=== PATIENT | female | born 1970 | race Caucasian/White ===

== ENCOUNTER 2020-08-13 13:03 | Inpatient (IN) ==
[2020-08-13] MEDS ORDERED: 0.9 % SODIUM CHLORIDE 1,000 ML IV ONE (13:36)
--- NOTE | 2020-08-13 13:39 | Emergency Department Note ---
Arrhythmia/Palpitations HPI General Chief Complaint: Arrhythmia/Palpitations Stated Complaint: palpations and light headed Time Seen by Provider: 08/13/20 13:25 Source: patient Mode of arrival: ambulatory Limitations: no limitations History of Present Illness HPI Narrative: Narrative: 49-year-old female comes in again 3 days after being seen for hypertensive urgency. Her Covid test and PCR were negative as of tod ay. She is complaining of cough and some mild congestion and paranasal sinus headache. She took her hydralazine right before coming in so her blood pressure is trending down-it was as high as 220 systolic prior to this. She is also on metoprolol twice a day. She is having some chest pressure but no true chest pain. No trouble urinating. 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 release 24 hr multivitamin with minerals 1 tab PO QDAY 08/10/20 08/10/20 Previous Rx's Medication Instructions Recorded hydralazine 10 mg PO TIDP PRN #20 tab 08/10/20 Allergies Allergy/AdvReac Type Severity Reaction Status Date / Time Penicillins Allergy Mild Rash Verified 08/10/20 09:46 Amoxicillin AdvReac Mild Nausea Verified 08/10/20 09:46 Review of Systems ROS ROS Narrative: Narrative: All systems ED: reviewed and negative except as stated. [facility] Narrative Patient History Narrative: Narrative: Medical/Surgical/Family History All Active Problems (Updated 08/13/20 @ 13:51 by Anton Garcia MD) Palpitations (Acute) Sinusitis (Acute) Asymptomatic hypertensive urgency (Acute) Essential hypertension (Acute) Migraine (Acute) Headache (Acute) History of hypertension (Acute) History of benign brain tumor (Acute) Medical History (Updated 08/13/20 @ 13:51 by Anton Garcia MD) Status post gamma knife treatment (Acute) Surgical History (Updated 08/13/20 @ 13:46 by Anton Garcia MD) History of craniotomy (Acute) Social History Smoking Status: Never smoker Exam Narrative Narrative: Narrative: No acute distress resting comfortably. Normocephalic a traumatic. Conjunctive are clear sclerae white nonicteric. Mild proptosis on the right side. No nasal discharge but she does have some audible congestion. Oropharynx is pink and moist. Tongue is midline. I do not see any lesions perioral. She does have a baseline facial droop to the left. Mild chronic dysarthria. Heart is regular rate and rhythm no murmur appreciated. Lungs are clear to auscultation bilaterally without wheezes rales rhonchi or respiratory distress. Abdomen is soft nontender nondistended. No peritoneal signs or guarding. No pedal edema. +2 radial pulse. Alert and oriented General Limitations: no limitations Course Vital Signs Vital signs: Vital Signs Temperature 98.1 F 08/13/20 13:03 Pulse Rate 92 H 08/13/20 13:03 Respiratory Rate 18 08/13/20 13:03 Blood Pressure 211/115 08/13/20 13:03 Pulse Oximetry (%) 100 08/13/20 13:03 Temperature 98.1 F 08/13/20 13:03 Pulse Rate 88 08/13/20 17:17 Respiratory Rate 15 08/13/20 17:17 Blood Pressure 175/109 08/13/20 17:17 Pulse Oximetry (%) 96 08/13/20 17:17 MDM MDM Narrative Medical decision making narrative: Narrative: Hypertension plus congestion, which she thinks is from a sinus infection. Also noted is some chest pressure. EKG shows sinus rhythm but she does have some borderline ST depression in the lateral leads and inferior leads. I do not have a prior to compare with. We will check some labs and a chest x-ray. As she just took her hydralazine we will wait to see how that brings her blood pressure down before prescribing anything else Hydralazine brought her blood pressure into the 190s systolic but then it went back up to 213/100. We will give her a dose of labetalol Labetalol got her blood pressure into the 170s but this is still markedly elevat ed compared to her normal. We will give her 1 more dose Rhythm strip shows ST depression and this is concerning so we will repeat the EKG. troponin is normal as is D-dimer After getting up to go the bathroom blood pressure was down in the 200s. We will start a nicardipine drip. I discussed the case with both the patient and Dr. Powell, our hospitalist. He agreed to accept the patient for further care and evaluation in the hospital Lab Data Result diagrams: 08/13/20 13:37 08/13/20 13:37 Labs: Lab Results 08/13/20 08/13/20 08/13/20 Range/Units 13:37 13:37 13:37 WBC 8.4 (4.5-11.0) K/mcL RBC 4.89 (4.00-5.20) M/mcL Hgb 14.3 (12.0-15.0) g/dL Hct 41.6 (36.0-48.0) % MCV 85.1 (80.0-100.0) fL MCH 29.2 (26.0-34.0) pg MCHC 34.4 (31.0-36.0) g/dL RDW 11.9 (11.5-14.5) % Plt Count 366 (140-440) K/mcL MPV 10.1 (7.4-10.4) fL Neut % (Auto) 63.4 (38.0-78.0) % Lymph % (Auto) 29.6 (15.0-49.0) % [place] % (Auto) 5.1 (1.0-12.0) % Eos % (Auto) 1.7 (0.0-7.0) % Baso % (Auto) 0.2 (0.0-2.0) % Lymph # (Auto) 2.50 (1.50-4.80) K/mcL [place] # (Auto) 0.43 (0.10-0.90) K/mcL Eos # (Auto) 0.14 (0.00-0.70) K/mcL Baso # (Auto) 0.02 (0.00-0.20) K/mcL Absolute Neutrophils 5.35 (1.80-8.00) K/mcL D-Dimer < 0.27 L (0.27-0.5) ug/mL Sodium 139 (133-145) mmol/L Potassium 3.7 (3.3-5.1) mmol/L Chloride 102 (96-108) mmol/L Carbon Dioxide 27 (22-30) mmol/L Anion Gap 10.0 (8.0-16.0) BUN 11 (6-20) mg/dL Creatinine 0.9 (0.6-1.1) mg/dL GFR Calculation 74 Glucose 119 H (70-105) mg/dL Calcium 9.9 (8.6-10.4) mg/dL Magnesium 2.2 (1.6-2.5) mg/dL Total Bilirubin 0.3 (0.1-1.0) mg/dL AST 24 (<32) U/L ALT 23 (<40) U/L Alkaline Phosphatase 69 (39-117) U/L Troponin T (<0.03) ng/mL Total Protein 7.9 (5.9-8.4) gm/dL Albumin 4.5 (3.2-5.2) gm/dL Globulin 3.4 (2.2-3.7) gm/dL Albumin/Globulin Ratio 1.3 (1.0-2.3) TSH 1.58 (0.27-5.01) uIU/mL Urine Color Urine Appearance (Clear) Urine pH (5.0-9.0) Ur Specific [place] (1.000-1.035) Urine Protein (Negative) mg/dL Urine Glucose (UA) (Negative) mg/dL Urine Ketones (Negative) mg/dL Urine Occult Blood (Negative) mg/dL Urine Nitrate (Negative) Urine Bilirubin (Negative) mg/dL Urine Urobilinogen mg/dL Ur Leukocyte Esterase (Negative) /ug Ur Culture Indicated? 08/13/20 08/13/20 Range/Units 13:37 15:30 WBC (4.5-11.0) K/mcL RBC (4.00-5.20) M/mcL Hgb (12.0-15.0) g/dL Hct (36.0-48.0) % MCV (80.0-100.0) fL MCH (26.0-34.0) pg MCHC (31.0-36.0) g/dL RDW (11.5-14.5) % Plt Count (140-440) K/mcL MPV (7.4-10.4) fL Neut % (Auto) (38.0-78.0) % Lymph % (Auto) (15.0-49.0) % [place] % (Auto) (1.0-12.0) % Eos % (Auto) (0.0-7.0) % Baso % (Auto) (0.0-2.0) % Lymph # (Auto) (1.50-4.80) K/mcL [place] # (Auto) (0.10-0.90) K/mcL Eos # (Auto) (0.00-0.70) K/mcL Baso # (Auto) (0.00-0.20) K/mcL Absolute Neutrophils (1.80-8.00) K/mcL D-Dimer (0.27-0.5) ug/mL Sodium (133-145) mmol/L Potassium (3.3-5.1) mmol/L Chloride (96-108) mmol/L Carbon Dioxide (22-30) mmol/L Anion Gap (8.0-16.0) BUN (6-20) mg/dL Creatinine (0.6-1.1) mg/dL GFR Calculation Glucose (70-105) mg/dL Calcium (8.6-10.4) mg/dL Magnesium (1.6-2.5) mg/dL Total Bilirubin (0.1-1.0) mg/dL AST (<32) U/L ALT (<40) U/L Alkaline Phosphatase (39-117) U/L Troponin T < 0.01 (<0.03) ng/mL Total Protein (5.9-8.4) gm/dL Albumin (3.2-5.2) gm/dL Globulin (2.2-3.7) gm/dL Albumin/Globulin Ratio (1.0-2.3) TSH (0.27-5.01) uIU/mL Urine Color Colorless Urine Appearance Clear (Clear) Urine pH 7.0 (5.0-9.0) Ur Specific [place] 1.006 (1.000-1.035) Urine Protein Negative (Negative) mg/dL Urine Glucose (UA) Negative (Negative) mg/dL Urine Ketones Negative (Negative) mg/dL Urine Occult Blood Negative (Negative) mg/dL Urine Nitrate Negative (Negative) Urine Bilirubin Negative (Negative) mg/dL Urine Urobilinogen Negative mg/dL Ur Leukocyte Esterase Negative (Negative) /ug Ur Culture Indicated? No EKG Data EKG #1: EKG attestation: Yes I reviewed and interpreted this EKG. EKG results narrative: Borderline ST depression in the lateral and inferior leads. Sinus rhythm Discharge Plan Patient/Caregiver Discharge Instructions Pt seen by [employer]W OPERATOR/PA only: No Clinical Impression: Asymptomatic hypertensive urgency, Palpitations Sinusitis Qualifiers: Sinusitis location: frontal Chronicity: acute Recurrence: not specified as recurrent Qualified Code(s): J01.10 - Acute frontal sinusitis, unspecified Patient Disposition: Home, Self-Care Condition: Fair Follow up with: Les De La O DO [Primary Care Provider] - Prescriptions: No Action multivitamin with minerals [Hair,Skin and Nails] Tablet 1 tab PO QDAY RF: 0 amberen PO QDAY RF: 0 metoprolol succinate 50 mg capsule,sprinkle,ER 24hr 50 mg PO BID RF: 0 losartan 100 mg tablet 100 mg PO QDAY RF: 0 ferrous sulfate 325 mg (65 mg iron) tablet,delayed release (DR/EC) 325 mg PO BID RF: 0 hydralazine 10 mg tablet 10 mg PO TIDP PRN (Reason: hypertension) Qty: 20 RF: 0
--- NOTE | 2020-08-13 13:57 | XRay Report ---
CLINICAL INFORMATION: Cough COMPARISON: None. TECHNIQUE: Portable FINDINGS: The heart size, mediastinum and pulmonary vessels are unremarkable. The lungs are clear. There are no effusions. The bones and soft tissues are within normal limits. IMPRESSION: Normal chest. Interpreted and Authenticated by: Dung Wei 08/13/20
[2020-08-13 14:25] LABS: Basophils # (Auto) 0.02 K/mcL (0.00-0.20); Basophils % (Auto) 0.2 % (0.0-2.0); Eosinophils # (Auto) 0.14 K/mcL (0.00-0.70); Eosinophils % (Auto) 1.7 % (0.0-7.0); Hematocrit 41.6 % (36.0-48.0); Hemoglobin 14.3 g/dL (12.0-15.0); Lymphocytes % (Auto) 29.6 % (15.0-49.0); Mean Cell Volume 85.1 fL (80.0-100.0); Mean Corpuscular HGB Conc 34.4 g/dL (31.0-36.0); Mean Platelet Volume 10.1 fL (7.4-10.4); Monocytes # (Auto) 0.43 K/mcL (0.10-0.90); Monocytes % (Auto) 5.1 % (1.0-12.0); Neutrophils % (Auto) 63.4 % (38.0-78.0); Platelet Count 366 K/mcL (140-440); RBC 4.89 M/mcL (4.00-5.20); Red Cell Distribution Width 11.9 % (11.5-14.5); WBC 8.4 K/mcL (4.5-11.0)
[2020-08-13] MEDS ORDERED: LABETALOL 5 MG/ML ML IV ONE ×2 (14:35→15:47)
[2020-08-13 14:52] LABS: ALT/SGPT 23 U/L (<40); AST/SGOT 24 U/L (<32); Albumin 4.5 gm/dL (3.2-5.2); Albumin/Globulin Ratio 1.3 (1.0-2.3); Alkaline Phosphatase 69 U/L (39-117); Bilirubin,Total 0.3 mg/dL (0.1-1.0); Blood Urea Nitrogen 11 mg/dL (6-20); Calcium 9.9 mg/dL (8.6-10.4); Carbon Dioxide 27 mmol/L (22-30); Chloride 102 mmol/L (96-108); Globulin 3.4 gm/dL (2.2-3.7); Glomerular Filtration Rate 74; Glucose 119 mg/dL (70-105); Thyroid Stimulating Hormone 1.58 uIU/mL (0.27-5.01)
[2020-08-13 16:33] LABS: Appearance,Urine CLEAR (Clear); Bilirubin,Urine Negative (Negative); Color,Urine COLORLESS; Culture Indicated,Urine No; Glucose,Urine (UA) Negative (Negative); Ketones,Urine Negative (Negative); Leukocyte Esterase,Urine Negative /ug (Negative); Nitrate,Urine Negative (Negative); Protein,Urine Negative (Negative); Specific Gravity,Urine 1.006 (1.000-1.035); Urine Blood Negative (Negative); Urobilinogen,Urine Negative
[2020-08-13] MEDS ORDERED: ACETAMINOPHEN 325 MG TABLET PO ONE (17:20)
--- NOTE | 2020-08-13 17:33 | Internal Med History&Physical ---
HPI History of Present Illness Patient information: Note initiated : 08/13/20 at 5:31 pm Service Date, if different from initiated Date: [] Patient: Brigitte Johnson a 49 y/o F admitted on for palpations and light headed. Chief Complaint: As above History of present illness: Ms. Johnson is a 49 year old F with a history of acoustic neuroma and resultant left facial palsy/left-sided hearing loss/hypertension/migraine who presents to the ER with worsening blood pressures and associated chest palpitation/lightheadedness weakness and shortness of breath that has progressed over the last few days. Patient has had longstanding hypertension and was f airly well controlled with blood pressures around 140s until recently. She was recently evaluated urgent care for rule out Covid. She was found to be hypertensive's on August 10 and was referred to the ER. Patient was discharged on oral hydralazine and advised to follow-up with primary care physician. However over the next 48 hours she developed increasing sinus symptoms/headache and blood pressure was elevated around 200. She took her hydralazine without any effect. She now presents to the ER. Initial work-up was consistent with blood pressures over 220. Negative troponins. X-ray unremarkable. Patient was started on labetalol without improvement. Subsequently nicardipine drip. Hospital service was consulted for admission. At the time of my evaluation patient is alert and oriented. She denies active distress. She was able to endorse history as above. She endorses to chest pressure symptoms. She denies diarrhea, dysuria, fever, chills, high salt intake or recent NSAID use. She denies missing her usual antihypertensives. She denies visual blurring but endorses to worsening headache/lightheadedness. She denies thunderclap headache or unilateral weakness Review of systems 10 point review system was performed and is negative except for ones discussed above PFSH PFSH All Active Problems (Updated 08/14/20 @ 10:09 by Mariana Pugh MD) Resistant hypertension (Chronic) Palpitations (Acute) Sinusitis (Acute) Asymptomatic hypertensive urgency (Acute) Essential hypertension (Acute) Migraine (Acute) Headache (Acute) History of hypertension (Acute) History of benign brain tumor (Acute) Medical History (Updated 08/14/20 @ 10:09 by Mariana Pugh MD) Status post gamma knife treatment (Acute) Surgical History (Updated 08/13/20 @ 13:46 by Anton Garcia MD) History of craniotomy (Acute) Social History smoking status: Never smoker MEDS/ALLERGIES Home Medications and Allergies Home Medications Medication Instructions Recorded Confirmed Type amberen 1 tab PO QDAY 08/10/20 08/13/20 History ferrous sulfate 325 mg (65 mg 325 mg PO BID 08/10/20 08/13/20 History iron) tablet,delayed release hydralazine 10 mg PO TIDP PRN #20 tab 08/10/20 08/13/20 Rx losartan 100 mg tablet 100 mg PO QHS 08/10/20 08/13/20 History metoprolol succinate 50 mg capsule 50 mg PO BID each 08/10/20 08/13/20 History sprinkle, ext. release 24 hr multivitamin with minerals 1 tab PO QDAY 08/10/20 08/13/20 History ibuprofen 800 mg PO PRN PRN 08/13/20 08/13/20 History Allergies Allergy/AdvReac Type Severity Reaction Status Date / Time Penicillins Allergy Mild Rash Verified 08/10/20 09:46 Amoxicillin AdvReac Mild Nausea Verified 08/10/20 09:46 EXAM Constitutional Vitals: Temp Pulse Resp BP Pulse Ox 98.1 F 88 15 175/109 96 08/13/20 13:03 08/13/20 17:17 08/13/20 17:17 08/13/20 17:17 08/13/20 17:17 Left-sided facial droop Head normocephalic Oral cavity moist Left hearing loss/no ear nose discharge Eye movement symmetrical Neck supple no lymphadenopathy S1-S2 regular Nonlabored breathing Nondistended nontender abdomen Lower extremity no cyanosis clubbing or joint swelling Skin no suspicious lesion Psych anxious but alert cooperative Neuro normal higher function DATA Data Completed and Pending Labs: Labs from last 24 hours 08/13/20 08/13/20 08/13/20 15:30 13:37 13:37 WBC RBC Hgb Hct MCV MCH MCHC RDW Plt Count MPV Neut % (Auto) Lymph % (Auto) [place] % (Auto) Eos % (Auto) Baso % (Auto) Lymph # (Auto) [place] # (Auto) Eos # (Auto) Baso # (Auto) Absolute Neutrophils D-Dimer Sodium 139 Potassium 3.7 Chloride 102 Carbon Dioxide 27 Anion Gap 10.0 BUN 11 Creatinine 0.9 GFR Calculation 74 Glucose 119 H Calcium 9.9 Magnesium 2.2 Total Bilirubin 0.3 AST 24 ALT 23 Alkaline Phosphatase 69 Troponin T < 0.01 Total Protein 7.9 Albumin 4.5 Globulin 3.4 Albumin/Globulin Ratio 1.3 TSH 1.58 Urine Color Colorless Urine Appearance Clear Urine pH 7.0 Ur Specific [place] 1.006 Urine Protein Negative Urine Glucose (UA) Negative Urine Ketones Negative Urine Occult Blood Negative Urine Nitrate Negative Urine Bilirubin Negative Urine Urobilinogen Negative Ur Leukocyte Esterase Negative Ur Culture Indicated? No 08/13/20 08/13/20 13:37 13:37 WBC 8.4 RBC 4.89 Hgb 14.3 Hct 41.6 MCV 85.1 MCH 29.2 MCHC 34.4 RDW 11.9 Plt Count 366 MPV 10.1 Neut % (Auto) 63.4 Lymph % (Auto) 29.6 [place] % (Auto) 5.1 Eos % (Auto) 1.7 Baso % (Auto) 0.2 Lymph # (Auto) 2.50 [place] # (Auto) 0.43 Eos # (Auto) 0.14 Baso # (Auto) 0.02 Absolute Neutrophils 5.35 D-Dimer < 0.27 L Sodium Potassium Chloride Carbon Dioxide Anion Gap BUN Creatinine GFR Calculation Glucose Calcium Magnesium Total Bilirubin AST ALT Alkaline Phosphatase Troponin T Total Protein Albumin Globulin Albumin/Globulin Ratio TSH Urine Color Urine Appearance Urine pH Ur Specific [place] Urine Protein Urine Glucose (UA) Urine Ketones Urine Occult Blood Urine Nitrate Urine Bilirubin Urine Urobilinogen Ur Leukocyte Esterase Ur Culture Indicated? A/P Narrative A/P Narrative: * Hypertensive crisis with chest pressure/headache-start nicardipine drips, resume home medication/add calcium channel allison. Nephrology consult for optimizing of hypertension. * History of migraine-continue as needed antimigraine medications. * Full code * Prophylaxis heparin Plan * Inpatient PCU admission * Nicardipine drip and titrate to effect * Restart antihypertensives * Nutrition support/therapies * Nephrology consult * Renal artery ultrasound/urine studies/echocardiogram Critical care time over 35 minutes on management of hypertensive crisis Time Spent With Patient Time: Total time spent is greater than 50% in coordination of care (as documented) at patient's floor/unit and/or counseling patient:
[2020-08-13] MEDS ORDERED: niCARdipine 25 MG in 0.9 % SODIUM CHLORIDE 240 ML IV SCH (17:45)
[2020-08-13] MEDS ORDERED: BISACODYL 10 MG SUPP.RECT PR PRN (18:44)
[2020-08-13] MEDS ORDERED: POTASSIUM CHLORIDE 40 MEQ in DEXTROSE 5% IN WATER 500 ML IV PRN (18:44)
[2020-08-13] MEDS ORDERED: hydrALAZINE 20 MG/ML VIAL IV PRN (18:44)
[2020-08-13] MEDS ORDERED: MAGNESIUM SULFATE 2 GM/50 ML BAG IV PRN (18:44)
[2020-08-13] MEDS ORDERED: ACETAMINOPHEN 650 MG/65 ML BAG IV PRN (18:44)
[2020-08-13] MEDS ORDERED: ONDANSETRON 4 MG/2 ML VIAL IV PRN (18:44)
[2020-08-13] MEDS ORDERED: POLYETHYLENE GLYCOL 3350 17 GM PACKET PO PRN (18:44)
[2020-08-13] MEDS ORDERED: POTASSIUM CHLORIDE 20 MEQ PACKET PO PRN (18:44)
[2020-08-13] MEDS ORDERED: ONDANSETRON 4 MG ODT TABLET SL PRN (18:44)
[2020-08-13] MEDS: niCARdipine 25 MG in 0.9 % SODIUM CHLORIDE 240 ML IV SCH ×2 (20:00→22:36)
[2020-08-13] MEDS: DOCUSATE SODIUM 100 MG CAPSULE PO SCH (20:38)
[2020-08-13] MEDS: SENNOSIDES/DOCUSATE SODIUM 1 TAB TABLET PO SCH (20:38)
[2020-08-13] MEDS ORDERED: SPIRONOLACTONE 25 MG TABLET PO ONE (20:48)
[2020-08-13] MEDS ORDERED: METOPROLOL SUCCINATE 50 MG PO SCH (21:00)
[2020-08-13] MEDS ORDERED: METOPROLOL SUCCINATE 50 MG TAB.XL.24H PO ONE (21:15)
[2020-08-13] MEDS: LOSARTAN 50 MG TABLET PO SCH (21:31)
[2020-08-13] MEDS: 0.9 % SODIUM CHLORIDE 10 ML SYRINGE IV SCH (21:31)
[2020-08-13] MEDS: HEPARIN 5,000 UNIT/ML VIAL SQ SCH (21:31)
[2020-08-13] MEDS: MELATONIN 3 MG TABLET PO PRN (22:54)
[2020-08-13] MEDS: ACETAMINOPHEN 325 MG TABLET PO PRN (22:54)
[2020-08-14] MEDS: niCARdipine 25 MG in 0.9 % SODIUM CHLORIDE 240 ML IV SCH ×2 (04:07→09:00)
[2020-08-14] MEDS: 0.9 % SODIUM CHLORIDE 10 ML SYRINGE IV SCH ×3 (05:48→22:45)
[2020-08-14] MEDS: ACETAMINOPHEN 325 MG TABLET PO PRN ×2 (05:55→13:02)
[2020-08-14 06:35] LABS: Basophils # (Auto) 0.02 K/mcL (0.00-0.20); Basophils % (Auto) 0.3 % (0.0-2.0); Eosinophils # (Auto) 0.11 K/mcL (0.00-0.70); Eosinophils % (Auto) 1.4 % (0.0-7.0); Hematocrit 39.8 % (36.0-48.0); Hemoglobin 13.3 g/dL (12.0-15.0); Lymphocytes # (Auto) 2.01 K/mcL (1.50-4.80); Lymphocytes % (Auto) 25.4 % (15.0-49.0); Mean Cell Volume 86.5 fL (80.0-100.0); Mean Corpuscular HGB Conc 33.4 g/dL (31.0-36.0); Mean Platelet Volume 10.1 fL (7.4-10.4); Monocytes % (Auto) 6.3 % (1.0-12.0); Neutrophils % (Auto) 66.6 % (38.0-78.0); Platelet Count 319 K/mcL (140-440); Red Cell Distribution Width 11.9 % (11.5-14.5); WBC 7.9 K/mcL (4.5-11.0)
[2020-08-14 06:57] LABS: ALT/SGPT 21 U/L (<40); AST/SGOT 22 U/L (<32); Albumin 4.2 gm/dL (3.2-5.2); Albumin/Globulin Ratio 1.4 (1.0-2.3); Alkaline Phosphatase 64 U/L (39-117); Bilirubin,Direct < 0.2 mg/dL (<0.3); Bilirubin,Total 0.6 mg/dL (0.1-1.0); Blood Urea Nitrogen 12 mg/dL (6-20); Calcium 9.6 mg/dL (8.6-10.4); Carbon Dioxide 25 mmol/L (22-30); Chloride 103 mmol/L (96-108); Glomerular Filtration Rate 74; Glucose 105 mg/dL (70-105); Lactate Dehydrogenase 172 U/L (135-225); Phosphorous 4.2 mg/dL (2.5-4.5); Triglycerides 98 mg/dL (<150)
[2020-08-14] MEDS: METOPROLOL SUCCINATE 50 MG TAB.XL.24H PO SCH ×2 (08:42→20:30)
[2020-08-14] MEDS: DOCUSATE SODIUM 100 MG CAPSULE PO SCH ×2 (08:42→20:30)
[2020-08-14] MEDS: HEPARIN 5,000 UNIT/ML VIAL SQ SCH ×2 (08:43→20:31)
[2020-08-14] MEDS ORDERED: MULTIVIT,THER IRON,CA,FA & MIN 1 TABLET PO SCH (09:00)
[2020-08-14] MEDS ORDERED: SPIRONOLACTONE 25 MG TABLET PO SCH (09:00)
--- NOTE | 2020-08-14 10:11 | Nephrology Consult Note ---
HPI Data of Consult Patient: new to practice Consult date: 08/14/20 Requesting physician: Prosper Johnson Primary Care Provider: Les De La O Consult Narrative Chief complaint: Weakness Reason for consult: Resistant hypertension History of present illness: Brigitte Johnson is a 49-year-old female with a 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 She presented to [facility] ED initially on 08/10/20 for worsening blood pressure and associated chest palpitation, lightheadedness, weakness and shortness of breath that has progressed over the last few days. She was discharged on oral hydralazine and advised to follow-up with her primary care physician. She came back on 08/13/20 for a worsening headache. In ED, her initial SBP was 220. Labetalol was started. Subsequently switched to Nicardipine drip and admitted to ICU. She was first diagnosed with hypertension at age 21 when and has been taking antihypertensives since then. Her mother and grandmother also had hypertension. Her mother had a stroke at age 60. She is not spencer about age of onset. She was taking Losartan 100 mg daily and Metoprolol succinate 50 mg daily with good control until recently. She tried other medications in the past and had syncope once. No other adverse reactions to antihypertensives. cc:: CC: Prosper Johnson Constitutional Constitutional: Absent anorexia and weakness EENT Nose, mouth and throat: Absent nasal discharge and sore throat Cardiovascular Cardiovascular: Absent chest pain and palpatations Respiratory Respiratory: Absent cough and dyspnea Gastrointestinal Gastrointestinal: Absent abdominal pain, nausea and vomiting Genitourinary Genitourinary: Absent dysuria and hematuria Integumentary Integumentary: Absent rash and wounds Neurological Neurological: Absent headache(s) Psychiatric Psychiatric: Absent anxiety and panic attacks Endocrine Endocrine: Absent cold intolerance and heat intolerance Hematologic/Lymphatic Hematologic/Lymphatic: Absent easy bleeding and easy bruising Allergic/Immunologic Allergic/Immunologic: Absent tongue swelling and uticaria PFSH PFSH All Active Problems (Updated 08/14/20 @ 10:09 by Mariana Pugh MD) Resistant hypertension (Chronic) Palpitations (Acute) Sinusitis (Acute) Asymptomatic hypertensive urgency (Acute) Essential hypertension (Acute) Migraine (Acute) Headache (Acute) History of hypertension (Acute) History of benign brain tumor (Acute) Medical History (Updated 08/14/20 @ 10:09 by Mariana Pugh MD) Status post gamma knife treatment (Acute) Surgical History (Updated 08/13/20 @ 13:46 by Anton Garcia MD) History of craniotomy (Acute) Social History smoking status: Never smoker MEDS/ALLERGIES Home Medications and Allergies Home Medications Medication Instructions Recorded Confirmed Type amberen 1 tab PO QDAY 08/10/20 08/13/20 History ferrous sulfate 325 mg (65 mg 325 mg PO BID 08/10/20 08/13/20 History iron) tablet,delayed release hydralazine 10 mg PO TIDP PRN #20 tab 08/10/20 08/13/20 Rx losartan 100 mg tablet 100 mg PO QHS 08/10/20 08/13/20 History metoprolol succinate 50 mg capsule 50 mg PO BID each 08/10/20 08/13/20 History sprinkle, ext. release 24 hr multivitamin with minerals 1 tab PO QDAY 08/10/20 08/13/20 History ibuprofen 800 mg PO PRN PRN 08/13/20 08/13/20 History Allergies Allergy/AdvReac Type Severity Reaction Status Date / Time Penicillins Allergy Mild Rash Verified 08/10/20 09:46 Amoxicillin AdvReac Mild Nausea Verified 08/10/20 09:46 Physical Examination Vital Signs Vital signs: Temp Pulse Resp BP Pulse Ox 97.9 F 93 H 18 162/117 100 08/14/20 08:01 08/13/20 20:16 08/14/20 08:01 08/14/20 08:01 08/14/20 08:01 General Appearance General appearance: well-developed, well-nourished and appears started age EENT EENT: mucous membranes moist Neck Neck: no JVD Respiratory Respiratory: clear Cardiovascular Cardiology: regular rate and regular rhythm Gastrointestinal Gastrointestinal: no tenderness Integumentary Integumentary: no rash Neurologic Neurologic: facial droop Musculoskeletal Musculoskeletal: no deformities Psychiatric Psychiatric: mood/affect appropriate and cooperative Results Lab Results Result Diagrams: 08/14/20 05:28 08/14/20 05:28 Lab results: Most recent lab results Calcium 9.6 mg/dL (8.6-10.4) 08/14/20 05:28 Phosphorus 4.2 mg/dL (2.5-4.5) 08/14/20 05:28 Magnesium 2.1 mg/dL (1.6-2.5) 08/14/20 05:28 A/P Assessment and plan (1) Resistant hypertension: Assessment and plan: Brigitte Johnson is a 49-year-old female with a 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 She presented to [facility] ED initially on 08/10/20 for worsening blood pressure and associated chest palpitation, lightheadedness, weakness and shortness of breath that has progressed over the last few days. She was discharged on oral hydralazine and advised to follow-up with her primary care physician. She came back on 08/13/20 for a worsening headache. In ED, her initial SBP was 220. Labetalol was started. Subsequently switched to Nicardipine drip and admitted to ICU. Nephrology consultation was requested for resistant hypertension. She was first diagnosed with hypertension at age 21 when and has been taking antihypertensives since then. Her mother and grandmother also had hypertension. Her mother had a stroke at age 60. She is not spencer about age of onset. She was taking Losartan 100 mg daily and Metoprolol succinate 50 mg daily with good control until recently. She tried other medications in the past and had syncope once. No other adverse reactions to antihypertensives. Resistant hypertension, defined as blood pressure above goal in spite of concurrent use of three antihypertensive agents of different classes, one of the three agents should be a diuretic, and all agents should be prescribed at maximum recommended (or maximally tolerated) antihypertensive doses. Secondary hypertension suspected. She has been followed by her PCP. No previous [facility] hypertension imaging work up at [facility] or [facility] EMR. Work up: Urinalysis on 08/13/20: Colorless, Clear, pH 7.0, SG 1.006, protein negative, Renal Doppler US: Requested. Echo: Pending. CXR on 08/13/20: Normal chest. EKG on 08/13/20: NSR. Treatment: Metoprolol succinate 50 mg twice daily Losartan 100 mg daily Spironolactone 25 mg daily Nicardipine infusion off. Progress: Serum creatinine 0.9, did not change in the past 24 hours. Urine output: 1,050+ ml reported in the past 24 hours. No fluid overload. BP: 124-162/88-117 since midnight. Recommendations/Plan: Amlodipine 10 mg daily and Chlorthalidone 25 mg daily added to her regimen. Triple combination of an ACEI or ARB, a long-acting dihydropyridine calcium channel allison (usually amlodipine), and a long-acting thiazide-like diuretic are first line agents. I will hold Spironolactone for now. Work up with Renal Doppler US and Echo pending. Avoid NSAIDs. Monitor BMP and urine output. Further work up based on progress and results. Status: Chronic Time Spent With Patient Time: Total time spent is greater than 50% in coordination of care (as documented) at patient's floor/unit and/or counseling patient:
[2020-08-14] MEDS: CHLORTHALIDONE 25 MG TABLET PO SCH (10:33)
[2020-08-14] MEDS: amLODIPine 10 MG TABLET PO SCH (10:33)
--- NOTE | 2020-08-14 11:20 | Internal Med Progress Note ---
SUBJECTIVE Subjective Patient information: Note initiated : 08/14/20 at 11:17 am Service Date, if different from initiated Date: [] Patient: Brigitte Johnson 49 y/o F admitted on 08/13/20 for Palpitations and light headed. 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 She presented to [facility] ED initially on 08/10/20 for worsening blood pressure and associated chest palpitation, lightheadedness, weakness and shortness of breath that has progressed over the last few days. She was discharged on oral hydralazine and advised to follow-up with her primary care physician. She came back on 08/13/20 for a worsening headache. In ED, her initial SBP was 220. Labetalol was started. Subsequently switched to Nicardipine drip and admitted to ICU. She was first diagnosed with hypertension at age 21 when and has been taking antihypertensives since then. Her mother and grandmother also had hypertension. Her mother had a stroke at age 60. She is not spencer about age of onset. She was taking Losartan 100 mg daily and Metoprolol succinate 50 mg daily with good control until recently. She tried other medications in the past and had syncope once. No other adverse reactions to antihypertensives. 08/14-patient doing a lot better. Denies headache/chest pressure. Systolics around 170. Nicardipine drip turned off. Currently on antihypertensives per nephrology recommendations. Spironolactone discontinued and transition to thiazide. Constitutional Vitals: Vital Signs Temp Pulse Resp BP Pulse Ox 97.9 F 93 H 18 162/117 100 08/14/20 08:01 08/13/20 20:16 08/14/20 08:01 08/14/20 08:01 08/14/20 08:01 Period Temp Pulse Resp BP Sys/Mao Pulse Ox Last 24 Hr 97.9 F-98.9 F 76-98 11-28 124-215/80-139 95-100 Intake and Output 08/13/20 08/14/20 08/14/20 21:59 05:59 13:59 Intake Total 1102 240 Output Total 350 700 150 Balance 752 -460 -150 Weight 52.889 kg Alert oriented baseline left facial droop No anxiety No telemetry events Intake & Output: Intake & Output 08/13/20 08/14/20 08/14/20 21:59 05:59 13:59 Intake Total 1102 240 Output Total 350 700 150 Balance 752 -460 -150 Weight 52.889 kg Intake: IV 1102 Sodium Chloride 0.9% 1,000 ml @ 1000 Wide Open IV .Q0M ONE Rx#: [id number] Cardene 25 MG In Sodium 102 Chloride 0.9% 240 ml @ 5 MG/HR 50 mls/hr IV ONCE [facility] Rx#: [id number] Oral 240 Output: Void Amount 350 700 150 Other: Urine Appearance Clear Urine Color Bright Yellow Urine Odor Normal OBJ DATA Labs CBC & Chem 7: 08/14/20 05:28 08/14/20 05:28 Labs: Abnormal Lab Results 08/13/20 08/13/20 13:37 13:37 D-Dimer < 0.27 L Glucose 119 H Meds: Medications Acetaminophen (Tylenol) 650 mg PO Q4-6HP PRN; Protocol PRN Reason: Per Pain Protocol/Fever > 101 Last Admin: 08/14/20 05:55 Dose: 650 mg Documented by: Amlodipine Besylate (Norvasc) 10 mg PO DAILY [facility] Last Admin: 08/14/20 10:33 Dose: 10 mg Documented by: Bisacodyl (Dulcolax) 10 mg DC Q2-3DAYS PRN PRN Reason: Constipation Chlorthalidone (Hygroton) 25 mg PO DAILY [facility] Last Admin: 08/14/20 10:33 Dose: 25 mg Documented by: Docusate Sodium (Colace) 100 mg PO BID [facility] Last Admin: 08/14/20 08:42 Dose: 100 mg Documented by: Heparin Sodium (Porcine) (Heparin) 5,000 unit SQ Q12 [facility] Last Admin: 08/14/20 08:43 Dose: 5,000 unit Documented by: Hydralazine HCl (Apresoline) 10 mg IV Q4-6HP PRN PRN Reason: Hypertension Potassium Chloride 40 meq/ (Dextrose) 520 mls @ 130 mls/hr IV UD PRN PRN Reason: K+ = or < 3.5 Acetaminophen (Ofirmev) 650 mg in 65 mls @ 130 mls/hr IV Q6HP PRN; Protocol PRN Reason: Per Pain Protocol/Fever > 101 Magnesium Sulfate (Magnesium Sulfate) 2 gm in 50 mls @ 50 mls/hr IV UD PRN PRN Reason: MG = or < 1.7 Nicardipine HCl 25 mg/ Sodium (Chloride) 250 mls @ 50 mls/hr IV Q5H [facility]; Protocol Last Admin: 08/14/20 09:00 Dose: Not Given Documented by: Iron Carb/Multivit/Firer Watertender/Folic Acid (Multivitamin W/Minerals) 1 tab PO DAILY [facility] Last Admin: 08/14/20 08:42 Dose: 1 tab Documented by: Losartan Potassium (Cozaar) 100 mg PO [facility] Last Admin: 08/13/20 21:31 Dose: 100 mg Documented by: Melatonin (Melatonin 3mg Tablet) 3 mg PO HSP PRN PRN Reason: Insomnia Last Admin: 08/13/20 22:54 Dose: 3 mg Documented by: Metoprolol Succinate (Toprol Xl) 50 mg PO BID [facility] Last Admin: 08/14/20 08:42 Dose: 50 mg Documented by: Ondansetron HCl (Zofran Odt) 4 mg SL Q4-6HP PRN; Protocol PRN Reason: Nausea And Vomiting Ondansetron HCl (Zofran) 4 mg IV Q4-6HP PRN; Protocol PRN Reason: Nausea And Vomiting Polyethylene Glycol (Miralax) 17 gm PO DAILYP PRN PRN Reason: Constipation Potassium Chloride (Klor-Con) 40 meq PO DAILYP PRN PRN Reason: K+ < 3.5 Senna/Docusate Sodium (Senna Plus Tablet) 1 tab PO [facility] Last Admin: 08/13/20 20:38 Dose: Not Given Documented by: Sodium Chloride (Saline Flush) 10 ml IV Q8 [facility] Last Admin: 08/14/20 05:48 Dose: 10 ml Documented by: A/P Assessment and plan (1) Resistant hypertension: Status: Chronic Narrative A/P Narrative: * Hypertensive crisis with endorgan dysfunction chest pressure/headache- responded well to nicardipine drip, turned off, improved blood pressure on triple antihypertensive combination per nephrology. * History of migraine-continue as needed antimigraine medications. * Full code * Prophylaxis heparin Plan * DC nicardipine drip * Continue hypertension management per nephrology * Possible discharge in 24 hours pending clinical improvement * Await hypertension work-up including renal artery ultrasound/echo/urine carole dies * PT OT nutrition support Time Spent With Patient Time: Total time spent is greater than 50% in coordination of care (as documented) at patient's floor/unit and/or counseling patient: QUALITY VTE Deep Vein Thrombosis/Pulmonary Embolism Present on Admission: No
[2020-08-14] MEDS ORDERED: niCARdipine 25 MG in 0.9 % SODIUM CHLORIDE 240 ML IV PRN (12:45)
--- NOTE | 2020-08-14 12:48 | Ultrasound Report ---
CLINICAL INFORMATION: HTN urgency, r/o FAWAD COMPARISON: None. FINDINGS: Both kidneys are normal and symmetric in size, position, configuration and echotexture: The right is 10 x 4 cm the left is 10 x 4 cm. Systolic velocities in both renal arteries are normal. No evidence of stenosis. Resistive indices are normal 0.61 in each kidney IMPRESSION: Normal bilateral kidneys and widely patent renal arteries. Resistive indices normal Interpreted and Authenticated by: Dung Wei 08/14/20
[2020-08-14] MEDS ORDERED: IBUPROFEN 800 MG TABLET PO PRN (15:04)
[2020-08-14] MEDS ORDERED: ALTEPLASE 2 MG VIAL IV PRN (15:53)
[2020-08-14] MEDS: AZITHROMYCIN 250 MG TABLET PO SCH (16:10)
[2020-08-14] MEDS: BUTALB/ACETAMINOPHEN/CAFFEINE 1 TABLET PO PRN (16:14)
[2020-08-14] MEDS: FERROUS SULFATE 325 MG TABLET PO SCH (16:14)
[2020-08-14] MEDS: MELATONIN 3 MG TABLET PO PRN (20:30)
[2020-08-14] MEDS: SENNOSIDES/DOCUSATE SODIUM 1 TAB TABLET PO SCH (20:30)
[2020-08-14] MEDS: LOSARTAN 50 MG TABLET PO SCH (20:30)
[2020-08-15] MEDS: BUTALB/ACETAMINOPHEN/CAFFEINE 1 TABLET PO PRN ×2 (03:14→11:05)
[2020-08-15] MEDS: 0.9 % SODIUM CHLORIDE 10 ML SYRINGE IV SCH ×2 (03:18→05:05)
[2020-08-15 06:25] LABS: Basophils # (Auto) 0.02 K/mcL (0.00-0.20); Basophils % (Auto) 0.3 % (0.0-2.0); Eosinophils # (Auto) 0.18 K/mcL (0.00-0.70); Eosinophils % (Auto) 2.3 % (0.0-7.0); Hematocrit 43.2 % (36.0-48.0); Hemoglobin 14.6 g/dL (12.0-15.0); Lymphocytes # (Auto) 1.92 K/mcL (1.50-4.80); Lymphocytes % (Auto) 24.3 % (15.0-49.0); Mean Cell Volume 85.4 fL (80.0-100.0); Mean Corpuscular HGB Conc 33.8 g/dL (31.0-36.0); Mean Platelet Volume 10.1 fL (7.4-10.4); Monocytes # (Auto) 0.56 K/mcL (0.10-0.90); Monocytes % (Auto) 7.1 % (1.0-12.0); Platelet Count 330 K/mcL (140-440); RBC 5.06 M/mcL (4.00-5.20); Red Cell Distribution Width 11.9 % (11.5-14.5); WBC 7.9 K/mcL (4.5-11.0)
[2020-08-15 06:51] LABS: ALT/SGPT 27 U/L (<40); AST/SGOT 27 U/L (<32); Albumin 4.5 gm/dL (3.2-5.2); Albumin/Globulin Ratio 1.6 (1.0-2.3); Alkaline Phosphatase 65 U/L (39-117); Bilirubin,Direct < 0.2 mg/dL (<0.3); Bilirubin,Total 0.6 mg/dL (0.1-1.0); Blood Urea Nitrogen 14 mg/dL (6-20); Calcium 9.7 mg/dL (8.6-10.4); Carbon Dioxide 24 mmol/L (22-30); Chloride 97 mmol/L (96-108); Globulin 2.9 gm/dL (2.2-3.7); Glomerular Filtration Rate 85; Glucose 99 mg/dL (70-105); Lactate Dehydrogenase 172 U/L (135-225); Phosphorous 4.4 mg/dL (2.5-4.5); Triglycerides 131 mg/dL (<150); Uric Acid 4.4 mg/dL (2.5-8.0)
--- NOTE | 2020-08-15 07:46 | Nephrology Progress Note ---
SUBJECTIVE Subjective Patient information: Note initiated : 08/15/20 at 7:43 am Patient: Brigitte Johnson 49 y/o F admitted on 08/13/20 for Palpitations and light headed. Chief Complaint: Weakness Pertinent ROS: No edema No headache No [place] Constitutional Vitals: Vital Signs Temp Pulse Resp BP Pulse Ox 97.2 F 67 16 136/101 98 08/15/20 04:00 08/15/20 04:00 08/15/20 05:01 08/15/20 05:01 08/15/20 04:00 Period Temp Pulse Resp BP Sys/Mao Pulse Ox Last 24 Hr 97.2 F-99.3 F 59-86 12-24 108-167/83-117 94-100 Intake and Output 08/14/20 08/15/20 08/15/20 21:59 05:59 13:59 Intake Total 1300 160 Output Total 725 175 Balance 575 -175 160 Weight 116 lb 6.4 oz Intake & Output: Intake & Output 08/14/20 08/15/20 08/15/20 21:59 05:59 13:59 Intake Total 1300 160 Output Total 725 175 Balance 575 -175 160 Weight 116 lb 6.4 oz Intake: Oral 1300 160 Output: Void Amount 725 175 Other: Meal Dinner Percent of Meal Consumed 50% Feeding Ability Independent Urine Appearance Clear Clear Urine Color Bright Yellow Bright Yellow Urine Odor Normal Normal Stool Size Moderate Stool Color Brown Black Stool Consistency Formed Soft # Bowel Movements 1 General appearance: cooperative and no acute distress Head Head exam: Present atraumatic and normal inspection Neck Neck exam: Present normal inspection Respiratory Respiratory exam: Present CTAB Cardiovascular Cardiovascular exam: Present normal rate and rhythm GI/Abdominal GI/Abdominal exam: Present soft Extremities Exam Extremities exam: Absent pedal edema Neurological Exam Neurological exam: Present alert and oriented X3 Additional comments: Facial droop Psychiatric Psychiatric exam: Present normal affect and normal mood Skin Skin exam: Present pallor A/P Assessment and plan (1) Resistant hypertension: Assessment and plan: Brigitte Johnson is a 49-year-old female with a 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 She presented to [facility] ED initially on 08/10/20 for worsening blood pressure and associated chest palpitation, lightheadedness, weakness and shortness of breath that has progressed over the last few days. She was discharged on oral hydralazine and advised to follow-up with her primary care physician. She came back on 08/13/20 for a worsening headache. In ED, her initial SBP was 220. Labetalol was started. Subsequently switched to Nicardipine drip and admitted to ICU. Nephrology consultation was requested for resistant hypertension. She was first diagnosed with hypertension at age 21 when and has been taking antihypertensives since then. Her mother and grandmother also had hypertension. Her mother had a stroke at age 60. She is not spencer about age of onset. She was taking Losartan 100 mg daily and Metoprolol succinate 50 mg daily with good control until recently. She tried other medications in the past and had syncope once. No other adverse reactions to antihypertensives. Resistant hypertension, defined as blood pressure above goal in spite of concurrent use of three antihypertensive agents of different classes, one of the three agents should be a diuretic, and all agents should be prescribed at maximum recommended (or maximally tolerated) antihypertensive doses. Secondary hypertension suspected. She has been followed by her PCP. No previous secondary hypertension imaging work up at [facility] or [facility] EMR. Work up: Urinalysis on 08/13/20: Colorless, Clear, pH 7.0, SG 1.006, protein negative, Renal Doppler US on 08/14/20: Normal bilateral kidneys and widely patent renal arteries. Resistive indices normal. Echo on 08/13/20: LVEF 65-70%. CXR on 08/13/20: Normal chest. EKG on 08/13/20: NSR. Treatment: Metoprolol succinate 50 mg twice daily Losartan 100 mg daily Amlodipine 10 mg daily Chlorthalidone 25 mg daily Progress: Serum creatinine 0/8 to 0.9 in the past 72 hours. Urine output: 1,575 ml reported in the past 24 hours. No fluid overload. BP: 137-108/101-83 since midnight. Recommendations/Plan: Continue current treatment. Target SBP 100-160 mmHg for the next week. No further work up. Follow up with PCP. Follow up with [facility] if requested by PCP or patient. Status: Chronic Time Spent With Patient Time: Total time spent is greater than 50% in coordination of care (as documented) at patient's floor/unit and/or counseling patient:
[2020-08-15] MEDS ORDERED: MULTIVIT,THER IRON,CA,FA & MIN 1 TABLET PO SCH (09:00)
[2020-08-15] MEDS: METOPROLOL SUCCINATE 50 MG TAB.XL.24H PO SCH (09:38)
[2020-08-15] MEDS: AZITHROMYCIN 250 MG TABLET PO SCH (09:38)
[2020-08-15] MEDS: FERROUS SULFATE 325 MG TABLET PO SCH (09:39)
[2020-08-15] MEDS: CHLORTHALIDONE 25 MG TABLET PO SCH (09:39)
[2020-08-15] MEDS: HEPARIN 5,000 UNIT/ML VIAL SQ SCH (09:39)
[2020-08-15] MEDS: amLODIPine 10 MG TABLET PO SCH (09:39)
[2020-08-15] MEDS: DOCUSATE SODIUM 100 MG CAPSULE PO SCH (10:02)
--- NOTE | 2020-08-15 10:12 | Discharge Summary ---
Discharge Provider Provider Patient information: Note initiated : 08/15/20 at 10:08 am Service Date, if different from initiated Date: [] Patient: Brigitte Johnson 49 y/o F admitted on 08/13/20 for Palpitations and light headed. Discharge diagnosis * Hypertensive crisis with endorgan dysfunction chest pressure/headache- responded well to nicardipine drip, currently off. On antihypertensives per nephrology. Discharging home on advised to continue antihypertensive aspirin for recommendation along with follow-up with PCP/nephrology as outpatient. * History of migraine-clinically improved on Fioricet. 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 She presented to [facility] ED initially on 08/10/20 for worsening blood pressure and associated chest palpitation, lightheadedness, weakness and shortness of breath that has progressed over the last few days. She was discharged on oral hydralazine and advised to follow-up with her primary care physician. She came back on 08/13/20 for a worsening headache. In ED, her initial SBP was 220. Labetalol was started. Subsequently switched to Nicard ipine drip and admitted to ICU. She was first diagnosed with hypertension at age 21 when and has been taking antihypertensives since then. Her mother and grandmother also had hypertension. Her mother had a stroke at age 60. She is not spencer about age of onset. She was taking Losartan 100 mg daily and Metoprolol succinate 50 mg daily with good control until recently. She tried other medications in the past and had syncope once. No other adverse reactions to antihypertensives. 08/14-patient doing a lot better. Denies headache/chest pressure. Systolics around 170. Nicardipine drip turned off. Currently on antihypertensives per nephrology recommendations. Spironolactone discontinued and transition to thiazide. 08/15-patient doing better. No overnight events. Headaches much improved. Systolics around 160s. On medications per nephrology. Discharging today without advised to follow-up outpatient with nephrology and PCP. Date of admission: 08/13/20 18:33 Discharge date: 08/15/20 Primary care physician: Les De La O Consults: 08/13/20 17:31 Consult to Physician [CONS] Stat Comment: Consulting Provider: Prosper Johnson Reason For Exam: Physician to Consult 08/14/20 08:43 Consult to Physician [CONS] Routine Comment: Consulting Provider: Mariana Pugh Reason For Exam: Physician to Consult Discharge Meds Discharge Medications Home Medications amberen 1 tab PO QDAY 08/10/20 [History Confirmed 08/13/20 Last Taken Unknown] ferrous sulfate 325 mg (65 mg iron) tablet,delayed release 325 mg PO BID 08/10/20 [History Confirmed 08/13/20 Last Taken 08/12/20] losartan 100 mg tablet 100 mg PO QHS 08/10/20 [History Confirmed 08/13/20 Last Taken 08/13/20] metoprolol succinate 50 mg capsule sprinkle, ext. release 24 hr 50 mg PO BID each 08/10/20 [History Confirmed 08/13/20 Last Taken 08/13/20] multivitamin with minerals 1 tab PO QDAY 08/10/20 [History Confirmed 08/13/20 Last Taken 08/13/20] amlodipine 10 mg PO DAILY #30 tab 08/15/20 [Rx Last Taken Unknown] tlvmgrcrug-uoxqwzbykuffb-labm 1 tab PO Q4HP PRN #30 tab 08/15/20 [Rx Last Taken Unknown] chlorthalidone 25 mg PO DAILY #30 tab 08/15/20 [Rx Last Taken Unknown] COURSE Hospital Course Hospital course: . Discharge diagnosis: Hypertensive crisis Time Spent with Patient Time attestation: Total time spent providing and/or coordinating discharge services: EXAM Constitutional Vitals: Temp Pulse Resp BP Pulse Ox 97.5 F 79 15 157/106 100 08/15/20 08:01 08/15/20 08:01 08/15/20 08:01 08/15/20 08:01 08/15/20 08:01 Discharge Data Data Completed and Pending Labs on day of discharge: Labs from last 24 hours 08/15/20 08/15/20 05:06 05:06 WBC 7.9 RBC 5.06 Hgb 14.6 Hct 43.2 MCV 85.4 MCH 28.9 MCHC 33.8 RDW 11.9 Plt Count 330 MPV 10.1 Neut % (Auto) 66.0 Lymph % (Auto) 24.3 Creek % (Auto) 7.1 Eos % (Auto) 2.3 Baso % (Auto) 0.3 Lymph # (Auto) 1.92 Creek # (Auto) 0.56 Eos # (Auto) 0.18 Baso # (Auto) 0.02 Absolute Neutrophils 5.21 Sodium 134 Potassium 3.9 Chloride 97 Carbon Dioxide 24 Anion Gap 13.0 BUN 14 Creatinine 0.8 GFR Calculation 85 Glucose 99 Uric Acid 4.4 Calcium 9.7 Phosphorus 4.4 Magnesium 2.3 Total Bilirubin 0.6 Direct Bilirubin < 0.2 GGT 18 AST 27 ALT 27 Alkaline Phosphatase 65 Lactate Dehydrogenase 172 Total Protein 7.4 Albumin 4.5 Globulin 2.9 Albumin/Globulin Ratio 1.6 Triglycerides 131 Discharge Plan Patient/Caregiver Discharge Instructions Activity: increase activity as tolerated Diet: Low Sodium (2gm) Activity Restrictions/Additional Instructions: Follow-up PCP in 5 to 7 days Follow-up nephrology clinic for management of hypertension Continue, metoprolol 50 twice daily, chlorthalidone 25, amlodipine 10, losartan 100 as per discharge recommendations Prescriptions: New chlorthalidone 25 mg Tablet 25 mg PO DAILY Qty: 30 RF: 0 amlodipine 10 mg Tablet 10 mg PO DAILY Qty: 30 RF: 0 xtqixftifu-fwibxnmfoxfhm-gnmd 50-325-40 mg Tablet 1 tab PO Q4HP PRN (Reason: Headache) Qty: 30 RF: 0 Continued multivitamin with minerals [Hair,Skin and Nails] Tablet 1 tab PO QDAY RF: 0 amberen 1 tab PO QDAY RF: 0 metoprolol succinate 50 mg capsule,sprinkle,ER 24hr 50 mg PO BID RF: 0 losartan 100 mg tablet 100 mg PO QHS RF: 0 ferrous sulfate 325 mg (65 mg iron) tablet,delayed release (DR/EC) 325 mg PO BID RF: 0 Discontinued hydralazine 10 mg tablet 10 mg PO TIDP PRN (Reason: hypertension) Qty: 20 RF: 0 ibuprofen 800 mg tablet 800 mg PO PRN PRN (Reason: pain) RF: 0 Follow Up Plan Follow up with: Les De La O DO [Primary Care Provider] - 08/17/20 8:15 am (Please keep and attend this previously scheduled appointment.) Patient Disposition: Home, Self-Care Prognosis: Fair Rehab Potential: Good I certify that the patient requires SNF services: No Overall status at discharge: patient is progressing back to baseline Discharge Orders: Discharge Order (Routine); Ordered 08/15/20 Ordered By: Prosper CURRAN VTE Deep Vein Thrombosis/Pulmonary Embolism Present on Admission: No
== END 2020-08-15 13:00 | disposition home or self-care (01) | DRG 305 ==
LOC: ED 13:03 → ICU 18:33
PROVIDERS: ADMIT Internal Medicine; ATTEND Internal Medicine